=== PATIENT | male | born 1980 | race Caucasian/White ===

== ENCOUNTER 2016-11-30 09:28 | Day surgery (SDC) | payer MEDICAID ==
[~2016-11-30] VITALS: Ht 180.3 cm; Wt 88.5 kg
[2016-11-30 11:47] VITALS: BP 148/105; Ht 180.3 cm; Wt 88.5 kg
[2016-11-30] MEDS ORDERED: NORCO 7.5/325 T1 TA1 PO (17:42)
[2016-11-30] MEDS ORDERED: FUROSEMIDE20 MG PO (17:42)
[2016-11-30 20:05] VITALS: BP 146/88
--- NOTE | 2016-11-30 20:05 | NUR ---
RECEIVED PATIENT FROM OUTPATIENT RECOVERY. PATIENT HAS NO VISIBLE SIGNS OF DISTRESS AND WAS ABLE TO EAT, DRINK, AND VOID WITH NO NAUSEA OR VOMITING. PATIENT'S FATHER IS AT BEDSIDE. BED IN LOWEST POSITION AND CALL LIGHT WITHIN REACH. ENCOURAGED THE PATIENT TO CALL IF HE HAS NEEDS.
[2016-11-30 21:13] VITALS: BP 145/85
--- NOTE | 2016-12-01 09:36 | OP ---
PATIENT NAME: CHRISTY DIOP JR MEDICAL RECORD: [id number] :78 [facility] ADMISSION DATE: SURGEON: CARLOS CERDA MD DATE OF OPERATION: 11/30/2016 SURGEON: Carlos Cerda MD PREOPERATIVE DIAGNOSIS: Left inguinal hernia. POSTOPERATIVE DIAGNOSIS: Bilateral inguinal hernia. PROCEDURE PERFORMED: Laparoscopic bilateral inguinal hernia repair with mesh. ANESTHESIA: General. COMPLICATIONS: None. SPECIMEN: None. Case was clean. ESTIMATED BLOOD LOSS: 30 cc. OPERATIVE COURSE: After consent was obtained, the patient was taken to the operating room and placed in the supine position on the operating table. Next, general anesthesia was given via endotracheal intubation after a timeout was performed to confirm the correct patient and procedure. The abdomen was prepped and draped in typical sterile fashion and Band-Aid dressing was placed. Local anesthetic was injected just to the right of the umbilicus. Skin incision was made with a 15 blade scalpel. Dissection continued with electrocautery to the level of the external oblique fascia, which was then opened with a 15 blade scalpel. The muscles were gently spread until the posterior fascia was identified. The Spacemaker trocar balloon was inserted into the preperitoneal space and advanced to the pubic tubercle. The balloon was inflated. It was left inflated for approximately 3 minutes to ensure hemostasis. The balloon was deflated and removed. CO2 was attached. The preperitoneal space was insufflated. The scope was inserted under direct laparoscopic vision, two additional trocars were placed, a 5-mm trocar into both the left lower and right lower quadrant into the preperitoneal space under direct laparoscopic vision after administration of local anesthetic. The left side was performed first. There was a very large left inguinal hernia defect. The hernia sac was meticulously dissected. The dissection began and the inferior epigastrics were followed. The hernia sac was taken down with a combination of blunt dissection and electrocautery. Dissection continued until the vas deferens was noted be running medially and the artery and vein, both running laterally. Attention was then turned to the right side, there was a direct hernia component noted on the right side and medial to the vessels. The internal inguinal ring was dissected. The peritoneum was stripped inferiorly until again the vas was noted to be running medially, the artery and vein laterally. The contents of the preperitoneal fat and hernia sac were dissected off the direct space. Once complete, the left side of mesh was placed into the preperitoneal space and it was secured to the Reji's ligament medially. A single tack was placed laterally. Two additional tacks were placed in the posterior rectus covering the internal inguinal ring. This process was repeated on the left side. Again, the mesh was inserted. It was secured to Reji's ligament medially. A single OPERATIVE REPORT [id number] CHRISTY DIOP JR tack was placed laterally and 2 tacks were placed into the rectus sheath. The two 5-mm trocars were then removed. Irrigation and suction was performed in the preperitoneal space. There was no evidence of bleeding. The preperitoneal space was deflated and the camera was removed. The Spacemaker trocars was then removed. The fascia was closed with an 0 Vicryl suture. Skin was closed with 4-0 Monocryl, Mastisol and Steri-Strips. At the end of the case, all needle and instrument counts were correct. No complications occurred. The patient was extubated and transferred to the PACU in stable condition. TRANSINT:[id number] Voice Confirmation ID: [id number] DOCUMENT ID: [id number] CARLOS CERDA MD at 0936 CC: [id number] DICTATION DATE: 11/30/161747 [place] PROGRAM COORDINATOR: 12/01/16 0347 [facility] 11/30/16 [place] [id number] [place] [id number]
== END 2016-11-30 22:30 | disposition home or self-care (01) ==
LOC: D.OPS 09:28 → D.MS 09:28 → D.OPS 10:30 → D.PAN 12:00 → D.OPS 12:00 → D.MS 19:11 → D.OPS 22:30
DX: K40.20 Bilateral inguinal hernia, without obstruction or gangrene, not specified as recurrent (principal); Z01.812 Encounter for preprocedural laboratory examination

== ENCOUNTER 2016-12-19 09:24 | Emergency (ER) | payer MEDICAID ==
[2016-11-30 11:47] VITALS: BMI 27.2
[~2016-12-19 09:24] MED LIST: FUROSEMIDE20 MG PO; NORCO 7.5/325 T1 TA1 PO
[2016-12-19 11:57] LABS: BASOPHILS 0.2 % (0-2); HEMATOCRIT 43.4 % (42.0-54.0); HEMOGLOBIN 14.5 g/dL (13.5-17.5); IMMATURE GRANULOCYTES 0.5 % (0-5); LYMPHOCYTES 18.9 % (15-50); MCHC 33.4 g/dL (31.0-37.0); MCV 89.9 fL (80.0-100.0); MEAN PLATELET VOLUME 9.4 fL (7.4-10.4); MONOCYTES 7.9 % (2-11); NEUTROPHILS 69.5 % (40-80); PLATELET COUNT 325 10x3/uL (130-400); RBC 4.83 10x6/uL (4.20-6.10); RDW 12.9 % (11.5-14.5); WBC 5.7 10x3/uL (4.8-10.8)
[2016-12-19 12:17] LABS: ALBUMIN 3.6 g/dL (3.4-5.0); ALKALINE PHOSPHATASE 64 U/L (46-116); ALT (SGPT) 36 U/L (10-68); BILIRUBIN - TOTAL 0.59 mg/dL (0.2-1.3); CALC OSMOLALITY 276 mosm/kg (275-300); CALCIUM 8.7 mg/dL (8.5-10.1); CARBON DIOXIDE 30.1 mmol/L (21.0-32.0); CHLORIDE - SERUM 103 mmol/L (98-107); CREATININE - SERUM 1.1 mg/dL (0.6-1.3); GLUCOSE 93 mg/dL (74-106); POTASSIUM - SERUM 3.9 mmol/L (3.5-5.1); PROTEIN - SERUM 7.2 g/dL (6.4-8.2); SODIUM 139 mmol/L (136-145); UREA NITROGEN 10 mg/dL (7-18); eGFR NON AFRICAN AMERICAN 80 mL/min (90-120)
== END 2016-12-19 12:58 | disposition home or self-care (01) ==
LOC: D.ER 09:24
PROVIDERS: Emergency Medicine
DX: Z04.1 Encounter for examination and observation following transport accident (principal)